=== PATIENT | male | born 1950 | race Caucasian/White ===

== ENCOUNTER 2023-08-01 07:49 | Day surgery (SDC) | payer BC ==
[2023-07-29 09:41] VITALS: BMI 27.7
[2023-08-01] MEDS ORDERED: PROPOFOL 20 ML ONE ×2 (11:02→11:09)
[2023-08-01] MEDS ORDERED: Lidocaine 1% PF 5 ML VIAL ONE (11:02)
== END 2023-08-01 12:16 | disposition home or self-care (01) ==
LOC: CSHSDC 07:49
PROVIDERS: ATTEND Internal Medicine Gastroenterology
PROC: 0DBM8ZZ Excision of Descending Colon, Via Natural or Artificial Opening Endoscopic (ICD-10-PCS; principal; 2023-08-01)
DX: Z12.11 Encounter for screening for malignant neoplasm of colon (principal); K51.40 Inflammatory polyps of colon without complications; K64.8 Other hemorrhoids; K57.30 Diverticulosis of large intestine without perforation or abscess without bleeding; E11.9 Type 2 diabetes mellitus without complications; I10 Essential (primary) hypertension; I25.10 Atherosclerotic heart disease of native coronary artery without angina pectoris; Z86.010 Personal history of colon polyps; Z79.85 Long-term (current) use of injectable non-insulin antidiabetic drugs; Z95.1 Presence of aortocoronary bypass graft
CPT/HCPCS: 88305; J2704